=== PATIENT | female | born 1985 | race African-American/Black ===

== ENCOUNTER 2024-12-27 12:33 | Outpatient (CLI) | payer OTHER, SELFPAY ==
--- NOTE | ~2024-12-27 | US_ITS ---
EXAMINATION: US renal BI DATE: 12/27/2024 12:56 INDICATION: Left flank pain TECHNIQUE: Multiple ultrasound grayscale images of the kidneys were obtained. COMPARISON: None. FINDINGS: The right kidney measures 11.2 x 4.5 x 5.0 cm. The left kidney measures 10.0 x 4.9 x 6.5 cm. There is normal renal cortical echogenicity. There is prominent increased echogenicity of the medullary pyramids both kidneys. There are bilateral anechoic renal cysts measuring 1.5 similar on the left and 9 mm on the right. There is no hydronephrosis in either kidney. No stones identified. The bladder is normal. IMPRESSION: 1. Bilateral nonspecific echogenic renal pyramids for which differential would include acute renal injury, chronic kidney disease, medullary nephrocalcinosis, medullary sponge kidney, sickle cell disease gout or infection. 2. No hydronephrosis. Reviewed, dictated and finalized at location [facility] IMPRESSION: 1. Bilateral nonspecific echogenic renal pyramids for which differential would include acute renal injury, chronic kidney disease, medullary nephrocalcinosis , medullary sponge kidney, sickle cell disease gout or infection. 2. No hydronephrosis.
== END 2024-12-27 12:34 | disposition home or self-care (01) ==
PROVIDERS: PCP Student in an Organized Health Care Education/Training Program; Visit Provider Student in an Organized Health Care Education/Training Program
DX: R10.A2 Flank pain, left side (principal)
CPT/HCPCS: 76770